=== PATIENT | female | born 1940 | race Asian ===

== ENCOUNTER 2018-12-03 15:02 | Emergency (ER) | payer MEDICARE, OTHER ==
[~2018-12-03] VITALS: Ht 157.5 cm; Wt 53.1 kg
--- NOTE | 2018-12-03 15:15 | NUR ---
PT BIBRA C/O HEADTRAUMA (+) HEMATOMA AT L FOREHEAD, PT IS AAOX3, NOT IN RESPIRATORY DISTRESS, V/S STABLE, KEPT RESTED AND COMFORTABLE.
[2018-12-03] MEDS ORDERED: MAGN400O6 PO (15:31)
[2018-12-03] MEDS ORDERED: MAG30ORA PO (15:31)
[2018-12-03] MEDS ORDERED: MULT-447 PO (15:31)
[2018-12-03] MEDS ORDERED: PSYL3.4P6 PO (15:31)
[2018-12-03] MEDS ORDERED: SENN-168 PO (15:31)
[2018-12-03] MEDS ORDERED: AMLO2.5T2 PO (15:31)
[2018-12-03] MEDS ORDERED: ACET-868 PO (15:31)
[2018-12-03] MEDS ORDERED: OXCA300T15 PO (15:31)
[2018-12-03] MEDS ORDERED: TRAZ-182 PO (15:31)
[2018-12-03] MEDS ORDERED: NA P133E RC (15:31)
[2018-12-03] MEDS ORDERED: BISA10SU8 RC (15:31)
[2018-12-03] MEDS ORDERED: CLON0.5T12 PO (15:31)
[2018-12-03] MEDS ORDERED: ZOLP5TAB8 PO (15:32)
[2018-12-03] MEDS ORDERED: CYAN100T3 PO (15:32)
--- NOTE | 2018-12-03 15:46 | NUR ---
PT IS WHEELED TO CT SCAN VIA [facility].
--- NOTE | 2018-12-03 17:30 | NUR ---
[facility] 1929 TRIP#[id number]
--- NOTE | 2018-12-03 19:18 | NUR ---
ASSUMED CARE OF PT. PT APPEARS UPSET THAT SHE HAS NOT GONE HOME YET. PT WAS TOLD THAT THE AMBULANCE IS COMING AT 1930. PT IS TRYING TO BE PT AND IS SITTING AT THE BEDSIDE.
--- NOTE | 2018-12-03 19:25 | NUR ---
CALLED [facility] AND WAS INFORMED [facility] WILL BE HERE IN 20 MINUTES AND ARE DELAYED
--- NOTE | 2018-12-03 19:32 | NUR ---
PT TRIED TO LEAVE BEFORE THE AMBULANCE ARRIVED. PT WAS SENT BACK TO ER BED #1. STAFF IS SITTING OUTSIDE THE ROOM UNTIL TRANSPORT AMBULANCE ARRIVED.
--- NOTE | 2018-12-03 19:53 | NUR ---
CALLING SIMA RE: PT HAND ALTERATIONS TAILOR.
--- NOTE | 2018-12-03 19:55 | NUR ---
SPOKE TO LISA ETA 15MINS.
--- NOTE | 2018-12-03 20:21 | NUR ---
AMBULANCE ARRIVED. Patient discharged to home in stable condition. Written and verbal after care instructions given. Patient verbalizes understanding of instruction. EMT HAS A COPY OF ALL PAPERWORK AND IMAGING. PT LEFT VIA AMBULANCE. VSS.
[2018-12-03 20:23] VITALS: BP 138/80
== END 2018-12-03 20:24 | disposition home or self-care (01) ==
LOC: ER 15:03
DX: S00.83XA Contusion of other part of head, initial encounter (principal); I10 Essential (primary) hypertension; F20.9 Schizophrenia, unspecified; F32.9 Major depressive disorder, single episode, unspecified; F41.9 Anxiety disorder, unspecified; Z88.0 Allergy status to penicillin; Z79.899 Other long term (current) drug therapy; W19.XXXA Unspecified fall, initial encounter; Y93.89 Activity, other specified; Y92.89 Other specified places as the place of occurrence of the external cause; Y99.8 Other external cause status
CPT/HCPCS: 70450-TC

== ENCOUNTER 2019-04-09 04:58 | Emergency (ER) | payer MEDICARE, OTHER ==
[~2019-04-09] VITALS: Ht 152.4 cm; Wt 49.9 kg
[~2019-04-09 04:58] MED LIST: ACET-868 PO; AMLO2.5T2 PO; BISA10SU8 RC; CLON0.5T12 PO; CYAN100T3 PO; MAG30ORA PO; MAGN400O6 PO; MULT-447 PO; NA P133E RC; OXCA300T15 PO; PSYL3.4P6 PO; SENN-168 PO; TRAZ-182 PO; ZOLP5TAB8 PO
[2019-04-09 05:30] VITALS: BP 142/84
--- NOTE | 2019-04-09 05:30 | NUR ---
Pt BIBRA FROM [facility] FOR INCREASED AGITATION AND CONFUSION FOR THE PAST DAY. Pt IS SYRIAC SPEAKING, UNDERSTANDS SOME YORUBA. CAN STATE NAME, & AGE. SAFETY MEASURES IN PLACE. WAITING FOR PSYCH EVAL. WILL CONTINUE TO MONITOR Pt's CONDITION AND SAFETY.
[2019-04-09 05:54] LABS: BASOPHILS % (AUTO) 0.7 % (0.0-2.0); EOSINOPHILS % (AUTO) 1.2 % (0.0-6.0); HEMATOCRIT 42 % (33-45); HEMOGLOBIN 14.3 g/dL (11.5-14.8); LYMPHOCYTES # (AUTO) 1.3 /CMM (0.8-4.8); LYMPHOCYTES % (AUTO) 22.2 % (20.0-44.0); MEAN CORPUSCULAR HGB CONC 34 g/dl (31.0-36.0); MEAN CORPUSCULAR VOLUME 92 fL (82-100); MONOCYTES # (AUTO) 0.4 /CMM (0.1-1.30); MONOCYTES % (AUTO) 7.6 % (2.0-12.0); NEUTROPHILS # (AUTO) 3.9 /CMM (1.8-8.9); NEUTROPHILS % (AUTO) 68.3 % (43.0-81.0); PLATELET COUNT (AUTO) 237 /CMM (150-450); WHITE BLOOD COUNT (AUTO) 5.8 K/uL (4.3-11.0)
--- NOTE | 2019-04-09 06:00 | NUR ---
URINE CULTURE COLLECTED. CLEAN CATCH.
[2019-04-09 06:11] LABS: ALANINE AMINOTRANSFERASE 24 U/L (12-78); ALBUMIN 3.9 g/dL (3.4-5.0); ALCOHOL, BLOOD < 3 mg/dL (0-0); ALKALINE PHOSPHATASE 53 U/L (46-116); ASPARTATE AMINOTRANSFERASE 13 U/L (15-37); BILIRUBIN,DIRECT 0.1 mg/dL (0.0-0.2); BILIRUBIN,TOTAL 0.4 mg/dL (0.2-1.0); CALCIUM, SERUM 8.7 mg/dL (8.5-10.1); CARBON DIOXIDE 28 mmol/L (21-32); CHLORIDE 105 mmol/L (98-107); CREATININE 0.7 mg/dL (0.6-1.3); GLUCOSE 107 mg/dL (74-106); POTASSIUM 3.8 mmol/L (3.5-5.1); SODIUM SERUM 140 mmol/L (136-145); TOTAL PROTEIN, SERUM 7.5 g/dL (6.4-8.2); UREA NITROGEN, BLOOD 18 mg/dL (7-18)
[2019-04-09 06:12] LABS: ACETAMINOPHEN 0 ug/ml (10-30); SALICYLATE 1.5 mg/dL (2.8-20.0)
[2019-04-09 06:14] LABS: APPEARANCE,URINE CLEAR (CLEAR); BILIRUBIN,URINE NEGATIVE (NEGATIVE); BLOOD, URINE NEGATIVE Ery/uL (NEGATIVE); COLOR,URINE YELLOW (YELLOW); KETONES,URINE NEGATIVE (NEGATIVE); LEUKOCYTE ESTERASE ,URINE NEGATIVE (NEGATIVE); NITRITE, URINE NEGATIVE (NEGATIVE); PH,URINE 6.5 (5.0-8.0); PROTEIN,URINE NEGATIVE (NEGATIVE); UGLUCOSE NEGATIVE (NEGATIVE); UROBILINOGEN,URINE 0.2 EU/dL (0.2)
--- NOTE | 2019-04-09 06:45 | NUR ---
WAITING FOR CRISIS TEAM CONSULT.
--- NOTE | 2019-04-09 07:30 | NUR ---
ENDORSED TO FUNMILAYO PÉREZ FOR Pt's SHAILESH.
--- NOTE | 2019-04-09 07:40 | NUR ---
patient in bed, sleeping in no apparent distress noted. will continue to monitor accordingly.
--- NOTE | 2019-04-09 08:20 | NUR ---
went to the PT room for vital signs check, patient not in the room and bathroom. Looked around hospital visinity and informed security to check around the hospital and no signs of patient.
--- NOTE | 2019-04-09 08:30 | NUR ---
called [employer] to report a missing person and unable to get a hold, will call back again later.
--- NOTE | 2019-04-09 08:40 | NUR ---
called security to check the camera to check which way patient went, and clothes color.
--- NOTE | 2019-04-09 09:00 | NUR ---
called security for update and per artaf they are still checking the camera.
--- NOTE | 2019-04-09 10:31 | NUR ---
CALLED [employer] RESERVATION AGENT [phone] INFORMED OF PT LEAVING.
--- NOTE | 2019-04-09 11:35 | NUR ---
officer jeromy GUZMAN came and given discription of the patient and informations. Per officer they will get back to us.
--- NOTE | 2019-04-09 13:02 | NUR ---
received a call from [facility] that patient walked back to the facility, informed to send the patient back for evaluation. made aware.
--- NOTE | 2019-04-09 13:04 | NUR ---
patient back to the facility ([facility]), eloped. Per SNF nurse she walked back to the facility. made aware.
[2019-04-09] MEDS ORDERED: SENN-18 PO (17:58)
[2019-04-09] MEDS ORDERED: OLAN10TA3 PO (17:58)
[2019-04-09] MEDS ORDERED: PRAV20TA PO (17:58)
[2019-04-09] MEDS ORDERED: METO-357 PO (17:58)
[2019-04-09] MEDS ORDERED: PSYL3.4P6 PO (17:58)
[2019-04-09] MEDS ORDERED: CHOL200026 PO (17:58)
[2019-04-09] MEDS ORDERED: CYAN10009 PO (17:58)
[2019-04-09] MEDS ORDERED: OLAN7.5T3 PO (17:58)
[2019-04-09] MEDS ORDERED: TYL2T PO (18:03)
== END 2019-04-09 13:04 | disposition left against medical advice (07) ==
LOC: ER 05:00
DX: R41.82 Altered mental status, unspecified (principal); R45.1 Restlessness and agitation; I10 Essential (primary) hypertension; M62.81 Muscle weakness (generalized); F20.9 Schizophrenia, unspecified; F41.9 Anxiety disorder, unspecified; F31.9 Bipolar disorder, unspecified; Z88.0 Allergy status to penicillin
CPT/HCPCS: 36415; 70450; 80048; 80076; 80305; 80307; 81001; 85025; 99284; G0480; 81000-TC

== ENCOUNTER 2019-04-09 17:13 | Inpatient (IN) | payer MEDICARE, OTHER ==
[~2019-04-09] VITALS: Ht 157.5 cm; Wt 49.4 kg
--- NOTE | 2019-04-09 17:15 | NUR ---
HUBERT FROM [facility] FOR AGITATION. TO ER BED 9, PROVIDED W WARM BLANKET, DR REHMAN AT BEDSIDE
--- NOTE | 2019-04-09 17:32 | NUR ---
CALLED PRIMING MACHINE OPERATOR ROSHAN ANDERSON ~1 HR
[2019-04-09] MEDS ORDERED: OLANZAPINE 10 MG VIAL IM ONE ×2 (17:53→18:00)
[2019-04-09] MEDS ORDERED: CYAN10009 PO (17:58)
[2019-04-09] MEDS ORDERED: PSYL3.4P6 PO (17:58)
[2019-04-09] MEDS ORDERED: OLAN10TA3 PO (17:58)
[2019-04-09] MEDS ORDERED: OLAN7.5T3 PO (17:58)
[2019-04-09] MEDS ORDERED: SENN-18 PO (17:58)
[2019-04-09] MEDS ORDERED: METO-357 PO (17:58)
[2019-04-09] MEDS ORDERED: PRAV20TA PO (17:58)
[2019-04-09] MEDS ORDERED: CHOL200026 PO (17:58)
[2019-04-09] MEDS ORDERED: TYL2T PO (18:03)
--- NOTE | 2019-04-09 18:20 | NUR ---
REPORT GIVEN TO MS HORNER OF F[facility]-PSYCH
[2019-04-09 18:52] VITALS: BP 132/81
--- NOTE | 2019-04-09 18:53 | NUR ---
PT. ARRIVED IN THE UNIT VIA A GURNEY AND WHEELED BY ER STAFF. ADMITTED ON [address] STOCK MADE AWARE OF THE ADMISSION AND WITH ORDERS. V/S TAKEN AND CONTRABAND DONE AND WILL ENDORSE TO THE NEXT SHIFT FOR THE COMPLETION OF THE ADMISSION.
[2019-04-09] MEDS ORDERED: QUETIAPINE FUMARATE 25 MG TABLET PO PRN (19:00)
[2019-04-09] MEDS ORDERED: MAGNESIUM HYDROXIDE 30 ML UDC PO PRN (19:00)
[2019-04-09] MEDS ORDERED: MAG HYDROX/AL HYDROX/SIMETH 30 ML UDC PO PRN (19:00)
[2019-04-09] MEDS ORDERED: ACETAMINOPHEN 325 MG TABLET PO PRN (19:00)
[2019-04-09 20:00] VITALS: BP 132/79
--- NOTE | 2019-04-09 20:00 | NUR ---
ADMISSION NOTES: ADMITTED THIS 79 Y/O FEMALE PATIENT ADMIT FROM [facility] , PT IS ON 5150 HOLD FOR DTS, DTO,GRAVELY DISABLE DANGER TO OTHERS , PER HOLD PT. AGGERSSIVE, AGITATED, WANDERED OUT OF HER CARE FACILITY , UPON FACE TO FACE ASSESSMENT PATIENT IS A&O X1 ,2 MANIC BX, UNCOOPERTIVE,AGGRESSIVE, DISORGINZE, CONFUSED EASILY GETS AGITATED, PT. IS POOR HISTORIAN, POOR INSIGHT ,POOR JUDGEMENT , POOR HYGINE , PT. REFUSED TO TAKE SHOWER AT THIS TIME , AND PT. REFUSED TO SIGN ADMISSION PAPERS ,V/S MD AMADOR AWARE AND NOTIFIED OF THE ADMISSION, PT. REFUSED SKIN FULL BODY ASSESSMENT , ENCOURAGED FOR SKIN ASSESSMENT/ PER PT. MY SKIN IS FINE ,EXPLINED RISKS AND BENEFITS STILL REFUSED, ENCOURAGED PT. VERBALIZED ANY FEELING CONCERN TO STAFF, ORIENT TO UNIT POLICY, WILL CONTINUE TO MONITOR FOR Q15 SAFETY AND BEHAVIOR.
[2019-04-09] MEDS ORDERED: BISACODYL SUPP (10 MG) 10 MG/SUPP.RECT SUPP.RECT RC PRN (22:30)
[2019-04-09] MEDS ORDERED: NA PHOS,M-B/NA PHOS,DI-BA 1 EA ENEMA RC PRN (22:30)
[2019-04-10 07:17] LABS: ALANINE AMINOTRANSFERASE 27 U/L (12-78); ALBUMIN 3.4 g/dL (3.4-5.0); ALKALINE PHOSPHATASE 49 U/L (46-116); ASPARTATE AMINOTRANSFERASE 27 U/L (15-37); BILIRUBIN,TOTAL 0.6 mg/dL (0.2-1.0); CALCIUM, SERUM 8.3 mg/dL (8.5-10.1); CARBON DIOXIDE 27 mmol/L (21-32); CHLORIDE 106 mmol/L (98-107); CREATININE 0.6 mg/dL (0.6-1.3); GLUCOSE 101 mg/dL (74-106); POTASSIUM 3.5 mmol/L (3.5-5.1); SODIUM SERUM 142 mmol/L (136-145); TOTAL PROTEIN, SERUM 6.6 g/dL (6.4-8.2); UREA NITROGEN, BLOOD 16 mg/dL (7-18)
[2019-04-10 07:48] LABS: CHOLESTEROL 181 mg/dL (<200); HDL CHOLESTEROL 58 mg/dL (40-60); LDL 113 mg/dL (0-99); TRIGLYCERIDES 63 mg/dL (30-150)
[2019-04-10 08:00] VITALS: BP 100/58
[2019-04-10] MEDS: OXCARBAZEPINE 150 MG TABLET PO SCH ×2 (08:50→13:03)
[2019-04-10] MEDS: METOPROLOL SUCCINATE 50 MG TAB.SR.24H PO SCH (08:50)
[2019-04-10] MEDS: CHOLECALCIFEROL 1,000 UNIT TABLET (VIT D3) PO SCH (08:50)
[2019-04-10] MEDS: CYANOCOBALAMIN 500 MCG TABLET PO SCH (08:50)
[2019-04-10 16:00] VITALS: BP 134/88
[2019-04-10] MEDS: ATORVASTATIN 10 MG TABLET PO SCH (21:28)
[2019-04-10] MEDS: DIVALPROEX SODIUM 125 MG TABLET.DR PO SCH (21:29)
[2019-04-10] MEDS: SENNOSIDES 8.6 MG TABLET PO SCH (21:29)
[2019-04-10] MEDS: risperiDONE 1 MG TABLET PO SCH (21:29)
[2019-04-10 21:54] VITALS: BP 125/78
[2019-04-10] MEDS ORDERED: PRAVASTATIN SODIUM 20 MG TABLET PO SCH (22:00)
[2019-04-11 09:31] VITALS: BP 123/77
[2019-04-11] MEDS: CHOLECALCIFEROL 1,000 UNIT TABLET (VIT D3) PO SCH (09:37)
[2019-04-11] MEDS: DIVALPROEX SODIUM 125 MG TABLET.DR PO SCH ×3 (09:38→20:12)
[2019-04-11] MEDS: CYANOCOBALAMIN 500 MCG TABLET PO SCH (09:38)
[2019-04-11] MEDS: METOPROLOL SUCCINATE 50 MG TAB.SR.24H PO SCH (09:38)
[2019-04-11] MEDS: risperiDONE 1 MG TABLET PO SCH ×2 (09:39→20:12)
[2019-04-11 16:00] VITALS: BP 108/69
[2019-04-11 20:57] VITALS: BP 149/81
[2019-04-11] MEDS: SENNOSIDES 8.6 MG TABLET PO SCH (21:06)
[2019-04-11] MEDS: ATORVASTATIN 10 MG TABLET PO SCH (21:06)
--- NOTE | 2019-04-11 21:07 | NUR ---
RN NOTE: WHEN INFORMED PT THAT SHE HAS SCHEDULED SENOKOT FOR TONIGHT, SHE REFUSED. SHE SAID SHE IS NOT CONSTIPATED AND HAS BEEN HAVING BM. EXPLAINED TO HER WHAT IT IS BUT SHE KEEPS SAYING "NO. I DON'T NEED IT."
[2019-04-12 08:00] VITALS: BP 122/79
[2019-04-12] MEDS: DIVALPROEX SODIUM 125 MG TABLET.DR PO SCH ×3 (08:22→21:30)
[2019-04-12] MEDS: CYANOCOBALAMIN 500 MCG TABLET PO SCH (08:22)
[2019-04-12] MEDS: CHOLECALCIFEROL 1,000 UNIT TABLET (VIT D3) PO SCH (08:22)
[2019-04-12] MEDS: risperiDONE 1 MG TABLET PO SCH ×2 (08:22→21:30)
[2019-04-12] MEDS: METOPROLOL SUCCINATE 50 MG TAB.SR.24H PO SCH (08:22)
--- NOTE | 2019-04-12 08:37 | NUR ---
Pt. was present but did not engage and left the session few minutes after it started.
--- NOTE | 2019-04-12 12:00 | NUR ---
Initial Discharge Plan: Pt currently resides at [facility] located at [address] [place] [id number]; ([phone]). Per pt, she would like to return "to the place I came from." LONI will work with the MD and the pt regarding appropriate discharge planning. SW will form a safe and proper discharge plan.
--- NOTE | 2019-04-12 12:01 | NUR ---
LONI called the pts daughter, Criss ([phone]), and discussed the initial discharge plan with her. It was discussed that the pt will return to [facility] and the LONI went over the medications with her as well. Addendum: 04/15/19 at 1041 by JEFF IVEY LONI also went over the pts treatment plan with the pt's daughter, Criss ([phone]).
--- NOTE | 2019-04-12 12:01 | NUR ---
LONI called Radha ([phone]) at [facility] and confirmed that the pt can return to their facility.
[2019-04-12 16:00] VITALS: BP 148/90
[2019-04-12 20:00] VITALS: BP 141/81
[2019-04-12] MEDS: ATORVASTATIN 10 MG TABLET PO SCH (21:31)
[2019-04-12] MEDS: SENNOSIDES 8.6 MG TABLET PO SCH (21:32)
--- NOTE | 2019-04-12 21:33 | NUR ---
RN NOTE: PATIENT REFUSED SCHEDULED SENOKOT FOR TONIGHT. SHE SAID SHE IS NOT CONSTIPATED. EXPLAINED TO HER WHAT IT IS BUT SHE KEEPS SAYING "NO. I DON'T NEED IT."
[2019-04-13 08:00] VITALS: BP 122/62
[2019-04-13] MEDS: DIVALPROEX SODIUM 125 MG TABLET.DR PO SCH ×3 (08:46→21:19)
[2019-04-13] MEDS: CHOLECALCIFEROL 1,000 UNIT TABLET (VIT D3) PO SCH (08:46)
[2019-04-13] MEDS: METOPROLOL SUCCINATE 50 MG TAB.SR.24H PO SCH (08:47)
[2019-04-13] MEDS: CYANOCOBALAMIN 500 MCG TABLET PO SCH (08:47)
[2019-04-13] MEDS: risperiDONE 1 MG TABLET PO SCH ×2 (08:50→21:19)
--- NOTE | 2019-04-13 14:10 | NUR ---
Group Note: Pt stated that she did not want to participate in group when the SW encouraged her. She was observed to be laying down in her bed with her eyes closed.
[2019-04-13 16:00] VITALS: BP 134/81
[2019-04-13 20:00] VITALS: BP 134/78
[2019-04-13 20:31] VITALS: BP 134/78
[2019-04-13] MEDS: ATORVASTATIN 10 MG TABLET PO SCH (21:19)
[2019-04-13] MEDS: SENNOSIDES 8.6 MG TABLET PO SCH (21:19)
[2019-04-13] MEDS: ZOLPIDEM TARTRATE 5 MG TABLET PO PRN (22:55)
[2019-04-14 08:27] VITALS: BP 104/61
[2019-04-14] MEDS: DIVALPROEX SODIUM 125 MG TABLET.DR PO SCH ×3 (08:48→21:11)
[2019-04-14] MEDS: CYANOCOBALAMIN 500 MCG TABLET PO SCH (08:49)
[2019-04-14] MEDS: risperiDONE 1 MG TABLET PO SCH ×2 (08:49→21:11)
[2019-04-14] MEDS: CHOLECALCIFEROL 1,000 UNIT TABLET (VIT D3) PO SCH (08:49)
[2019-04-14] MEDS: METOPROLOL SUCCINATE 50 MG TAB.SR.24H PO SCH (09:00)
--- NOTE | 2019-04-14 12:41 | NUR ---
Group Note: Pt was asleep when the SW went in the room to encourage the pt to participate in group therapy. SW asked the pt and she stated that she wanted to keep laying down in her bed.
[2019-04-14 16:28] VITALS: BP 110/72
[2019-04-14 20:15] VITALS: BP 132/81
[2019-04-14] MEDS: ATORVASTATIN 10 MG TABLET PO SCH (21:11)
[2019-04-14] MEDS: SENNOSIDES 8.6 MG TABLET PO SCH (21:11)
[2019-04-15 08:00] VITALS: BP 128/73
[2019-04-15] MEDS: DIVALPROEX SODIUM 125 MG TABLET.DR PO SCH ×2 (08:42→12:10)
[2019-04-15] MEDS: CHOLECALCIFEROL 1,000 UNIT TABLET (VIT D3) PO SCH (08:42)
[2019-04-15] MEDS: CYANOCOBALAMIN 500 MCG TABLET PO SCH (08:42)
[2019-04-15] MEDS: METOPROLOL SUCCINATE 50 MG TAB.SR.24H PO SCH (08:43)
[2019-04-15] MEDS: risperiDONE 1 MG TABLET PO SCH ×2 (09:12→20:53)
--- NOTE | 2019-04-15 11:05 | NUR ---
Supportive Counseling: SW informed the pt that she does not have a discharge date at this time because her psychiatrist, Dr. Dougherty, is currently adjusting her medications. Pt expressed her dissatisfaction with her hospital stay to the SW and the SW stated that she would attempt to address her needs as much as possible. SW assured her that she would be returning to her long-term facility in a matter of time.
[2019-04-15 11:13] LABS: VALPROIC ACID 9 ug/mL (50-100)
[2019-04-15 12:26] LABS: ALANINE AMINOTRANSFERASE 20 U/L (12-78); ASPARTATE AMINOTRANSFERASE 19 U/L (15-37)
--- NOTE | 2019-04-15 14:23 | NUR ---
Group Note: SW encouraged the pt to attend group therapy and she stated that she did not want to. She stated that she wanted to wait for her psychiatrist so that he could release her.
[2019-04-15 16:00] VITALS: BP 122/79
[2019-04-15 20:00] VITALS: BP 118/59
[2019-04-15] MEDS: DIVALPROEX SODIUM 500 MG TABLET.DR PO SCH (20:52)
[2019-04-15] MEDS: ATORVASTATIN 10 MG TABLET PO SCH (20:53)
[2019-04-15] MEDS: SENNOSIDES 8.6 MG TABLET PO SCH (20:53)
--- NOTE | 2019-04-16 03:19 | NUR ---
RN NOTES: ABLE TO SLEEP WELL IN THE NIGHT, GOOD COMPLIANCE WITH MEDICATION, COOPERATIVE,FALL,SAFETY AND ASPIRATION PRECAUTION OBSERVED,BED LOW AND LOCKED, ON CLOSE WATCH, NO AGGRESSIVE BEHAVIOR OR PERIODS OF AGITATION NOTED.
[2019-04-16 08:00] VITALS: BP 107/64
[2019-04-16] MEDS: METOPROLOL SUCCINATE 50 MG TAB.SR.24H PO SCH (09:00)
[2019-04-16] MEDS: CHOLECALCIFEROL 1,000 UNIT TABLET (VIT D3) PO SCH (09:34)
[2019-04-16] MEDS: CYANOCOBALAMIN 500 MCG TABLET PO SCH (09:34)
[2019-04-16] MEDS: risperiDONE 1 MG TABLET PO SCH ×2 (09:35→20:55)
[2019-04-16] MEDS: DIVALPROEX SODIUM 125 MG TABLET.DR PO SCH ×2 (09:35→13:34)
--- NOTE | 2019-04-16 14:43 | NUR ---
DR. VELÁSQUEZ PSYCHIATRIST IN TO SEE PT.
[2019-04-16 16:00] VITALS: BP 102/71
[2019-04-16 20:44] VITALS: BP 151/86
[2019-04-16] MEDS: DIVALPROEX SODIUM 500 MG TABLET.DR PO SCH (20:54)
[2019-04-16] MEDS: SENNOSIDES 8.6 MG TABLET PO SCH (21:54)
[2019-04-16] MEDS: ATORVASTATIN 10 MG TABLET PO SCH (21:55)
[2019-04-17 08:00] VITALS: BP 117/77
[2019-04-17] MEDS: CHOLECALCIFEROL 1,000 UNIT TABLET (VIT D3) PO SCH (08:36)
[2019-04-17] MEDS: risperiDONE 1 MG TABLET PO SCH ×2 (08:37→20:56)
[2019-04-17] MEDS: METOPROLOL SUCCINATE 50 MG TAB.SR.24H PO SCH (08:37)
[2019-04-17] MEDS: CYANOCOBALAMIN 500 MCG TABLET PO SCH (08:38)
[2019-04-17] MEDS: DIVALPROEX SODIUM 125 MG TABLET.DR PO SCH ×2 (09:17→12:21)
[2019-04-17 16:00] VITALS: BP 140/90
--- NOTE | 2019-04-17 18:08 | NUR ---
RN GPS NOTES PT AWAKE, ALERT AND ORIENTED, WALKS ALONG THE HALLWAY WITH STEADY GAIT, COMPLIANT WITH MEDS AND INTERVENTIONS, SEEN BY DR. PARRISH TODAY, NO BEHAVIOR PROBLEM NOTED.
[2019-04-17 20:17] VITALS: BP 143/95
[2019-04-17] MEDS: DIVALPROEX SODIUM 500 MG TABLET.DR PO SCH (20:56)
[2019-04-17] MEDS: ATORVASTATIN 10 MG TABLET PO SCH (21:10)
[2019-04-17] MEDS: SENNOSIDES 8.6 MG TABLET PO SCH (21:10)
[2019-04-17] MEDS: ZOLPIDEM TARTRATE 5 MG TABLET PO PRN (21:25)
--- NOTE | 2019-04-17 22:00 | NUR ---
RN NOTE: PATIENT REFUSED SCHEDULED SENOKOT FOR TONIGHT. DESPITE OF EDUCATION ON RISKS AND BENEFITS. PT STATED "NO. I DON'T NEED IT."
[2019-04-18 08:00] VITALS: BP 124/75
[2019-04-18] MEDS: DIVALPROEX SODIUM 125 MG TABLET.DR PO SCH ×2 (08:44→12:26)
[2019-04-18] MEDS: CHOLECALCIFEROL 1,000 UNIT TABLET (VIT D3) PO SCH (08:44)
[2019-04-18] MEDS: risperiDONE 1 MG TABLET PO SCH ×2 (08:45→21:25)
[2019-04-18] MEDS: CYANOCOBALAMIN 500 MCG TABLET PO SCH (08:45)
[2019-04-18] MEDS: METOPROLOL SUCCINATE 50 MG TAB.SR.24H PO SCH (08:45)
[2019-04-18 16:00] VITALS: BP 120/62
--- NOTE | 2019-04-18 16:50 | NUR ---
GPS/RN-NOTES DR. STOCK IN THE UNIT WITH VERBAL ORDER TO CHANGE DEPAKOTE TABLET ORDERS TO LIQUID FORM WITH SAME DOSAGES AND FREQUENCIES. NOTED AND CARRIED OUT.
--- NOTE | 2019-04-18 19:50 | NUR ---
GPS RN NOTE: PATIENT RESTING IN BED, NO ACUTE DISTRESS NOTED. BREATHING EVEN AND UNLABORED, NO SOB NOTED. PATIENT CALM AND COOPERATIVE AT THIS TIME. WILL CONTINUE TO MONITOR.
--- NOTE | 2019-04-18 19:55 | NUR ---
GPS RN NOTE: PATIENT RESTING IN BED, NO ACUTE DISTRESS NOTED. BREATHING EVEN AND UNLABORED, NO SOB NOTED. WILL CONTINUE TO MONITOR.
[2019-04-18 20:25] VITALS: BP 149/84
[2019-04-18] MEDS: ATORVASTATIN 10 MG TABLET PO SCH (21:25)
[2019-04-18] MEDS: VALPROIC ACID 250 MG/5 ML UDC PO SCH (21:25)
[2019-04-18] MEDS: SENNOSIDES 8.6 MG TABLET PO SCH (21:25)
[2019-04-19 08:00] VITALS: BP 115/68
[2019-04-19] MEDS: METOPROLOL SUCCINATE 50 MG TAB.SR.24H PO SCH (08:42)
[2019-04-19] MEDS: risperiDONE 1 MG TABLET PO SCH ×2 (08:42→20:56)
[2019-04-19] MEDS: CHOLECALCIFEROL 1,000 UNIT TABLET (VIT D3) PO SCH (08:42)
[2019-04-19] MEDS: VALPROIC ACID 250 MG/5 ML UDC PO SCH ×3 (08:42→20:56)
[2019-04-19] MEDS: CYANOCOBALAMIN 500 MCG TABLET PO SCH (08:43)
--- NOTE | 2019-04-19 14:25 | NUR ---
Group Note: Pt stated that she did not want to participate in group when the SW encouraged her. Pt is confused and disoriented.
[2019-04-19 16:28] VITALS: BP 127/86
[2019-04-19 19:57] VITALS: BP 130/78
[2019-04-19] MEDS: ATORVASTATIN 10 MG TABLET PO SCH (21:07)
[2019-04-19] MEDS: SENNOSIDES 8.6 MG TABLET PO SCH (21:08)
--- NOTE | 2019-04-19 21:25 | NUR ---
RN NOTE: PATIENT REFUSED SCHEDULED SENOKOT FOR TONIGHT. DESPITE OF EDUCATION ON RISKS AND BENEFITS. PT STATED "NO. I DON'T NEED IT. I'M HAVING DIARRHEA WHEN TAKING IT."
[2019-04-19] MEDS: ZOLPIDEM TARTRATE 5 MG TABLET PO PRN (21:33)
[2019-04-20 08:00] VITALS: BP 125/78
--- NOTE | 2019-04-20 08:33 | NUR ---
SW called the pts daughter, Criss ([phone]), and informed her that the pts psychiatrist, Dr. Dougherty, stated that the pt has been cheeking her medications and therefore she will need to be in the hospital for a few more days to become more stable. Pts daughter expressed concern that the pt appears to be more confused and that she appears to be getting worse. She asked if the medications would help the pt improve and the SW stated that was the goal.
[2019-04-20] MEDS: VALPROIC ACID 250 MG/5 ML UDC PO SCH ×3 (09:00→20:34)
[2019-04-20] MEDS: CHOLECALCIFEROL 1,000 UNIT TABLET (VIT D3) PO SCH (09:39)
[2019-04-20] MEDS: CYANOCOBALAMIN 500 MCG TABLET PO SCH (09:39)
[2019-04-20] MEDS: METOPROLOL SUCCINATE 50 MG TAB.SR.24H PO SCH (09:40)
[2019-04-20] MEDS: risperiDONE 1 MG TABLET PO SCH ×2 (09:41→20:27)
--- NOTE | 2019-04-20 10:02 | NUR ---
GPS/RN-NOTES PATIENT REFUSED DEPAKENE SYP 250MG P.O DESPITE EXPLANATION RISK AND BENEFITS. PATIENT STATED" NO,I DON'T WANT TO TAKE THAT MEDICINE". OFFERED X3.
--- NOTE | 2019-04-20 14:02 | NUR ---
GPS/RN-NOTES PATIENT STILL REFUSED DEPAKENE SYP 250MG P.O DESPITE EXPLANATION RISK AND BENEFITS. OFFERED X3.
--- NOTE | 2019-04-20 15:53 | NUR ---
Group Note: Pt stated that she did not want to participate in group when the SW encouraged her. Pt is confused and disoriented.
[2019-04-20 16:00] VITALS: BP 121/79
[2019-04-20] MEDS: BENZTROPINE MESYLATE (1 MG) 1 MG TABLET PO SCH (17:22)
[2019-04-20 20:01] VITALS: BP 144/83
[2019-04-20] MEDS: SENNOSIDES 8.6 MG TABLET PO SCH (21:09)
[2019-04-20] MEDS: ATORVASTATIN 10 MG TABLET PO SCH (21:09)
[2019-04-20] MEDS: ZOLPIDEM TARTRATE 5 MG TABLET PO PRN (21:37)
--- NOTE | 2019-04-20 21:52 | NUR ---
RN NOTE: PATIENT REFUSED SCHEDULED DEPAKENE 500MG/10ML SYRUP AND SENOKOT FOR TONIGHT. DESPITE OF EXPLANATION ON RISKS AND BENEFITS. PT STATED "NO. I DON'T WANT IT". PATIENT STRONGLY REFUSED.
[2019-04-21 08:00] VITALS: BP 140/84
[2019-04-21] MEDS: CHOLECALCIFEROL 1,000 UNIT TABLET (VIT D3) PO SCH (08:28)
[2019-04-21] MEDS: BENZTROPINE MESYLATE (1 MG) 1 MG TABLET PO SCH ×2 (08:28→16:50)
[2019-04-21] MEDS: METOPROLOL SUCCINATE 50 MG TAB.SR.24H PO SCH (08:29)
[2019-04-21] MEDS: CYANOCOBALAMIN 500 MCG TABLET PO SCH (08:29)
[2019-04-21] MEDS: risperiDONE 1 MG TABLET PO SCH ×2 (08:29→21:13)
[2019-04-21] MEDS: VALPROIC ACID 250 MG/5 ML UDC PO SCH ×3 (08:32→21:13)
--- NOTE | 2019-04-21 15:15 | NUR ---
GROUP NOTE: SW prompted pt to participate in group, pt refused to participate stating she did not want to go.
[2019-04-21 16:23] VITALS: BP 107/64
[2019-04-21 20:00] VITALS: BP 114/73
[2019-04-21] MEDS: SENNOSIDES 8.6 MG TABLET PO SCH (21:13)
[2019-04-21] MEDS: ATORVASTATIN 10 MG TABLET PO SCH (22:08)
[2019-04-22 08:00] VITALS: BP 103/54
[2019-04-22] MEDS: METOPROLOL SUCCINATE 50 MG TAB.SR.24H PO SCH (09:00)
[2019-04-22] MEDS: VALPROIC ACID 250 MG/5 ML UDC PO SCH ×3 (09:14→21:22)
[2019-04-22] MEDS: CYANOCOBALAMIN 500 MCG TABLET PO SCH (09:28)
[2019-04-22] MEDS: BENZTROPINE MESYLATE (1 MG) 1 MG TABLET PO SCH ×2 (09:28→17:27)
[2019-04-22] MEDS: CHOLECALCIFEROL 1,000 UNIT TABLET (VIT D3) PO SCH (09:29)
[2019-04-22] MEDS: risperiDONE 1 MG TABLET PO SCH ×2 (09:29→21:22)
--- NOTE | 2019-04-22 14:42 | NUR ---
Group Note: Pt stated that she did not want to participate in group therapy on 04/22/19 at 1:30PM when the SW encouraged her. Pt is confused and disoriented.
--- NOTE | 2019-04-22 14:44 | NUR ---
LONI called the pts daughter, Criss ([phone]), and left her a voicemail stating that the SW does not have a discharge date for the pt at this point and that the SW will talk to the psychiatrist, Dr. Dougherty, and inform the daughter of an update on Thursday.
[2019-04-22 16:00] VITALS: BP 122/77
[2019-04-22 20:00] VITALS: BP 138/76
[2019-04-22] MEDS: SENNOSIDES 8.6 MG TABLET PO SCH (21:22)
[2019-04-22] MEDS: ATORVASTATIN 10 MG TABLET PO SCH (21:22)
[2019-04-22] MEDS: ZOLPIDEM TARTRATE 5 MG TABLET PO PRN (22:17)
[2019-04-23 08:00] VITALS: BP 135/71
--- NOTE | 2019-04-23 10:30 | NUR ---
initially this am reluctant to take meds,then with prodding consented to take all meds.
[2019-04-23] MEDS: CYANOCOBALAMIN 500 MCG TABLET PO SCH (10:32)
[2019-04-23] MEDS: VALPROIC ACID 250 MG/5 ML UDC PO SCH ×3 (10:32→21:32)
[2019-04-23] MEDS: CHOLECALCIFEROL 1,000 UNIT TABLET (VIT D3) PO SCH (10:33)
[2019-04-23] MEDS: BENZTROPINE MESYLATE (1 MG) 1 MG TABLET PO SCH ×2 (10:33→18:48)
[2019-04-23] MEDS: METOPROLOL SUCCINATE 50 MG TAB.SR.24H PO SCH (10:33)
[2019-04-23] MEDS: risperiDONE 1 MG TABLET PO SCH ×2 (10:33→21:33)
--- NOTE | 2019-04-23 14:42 | NUR ---
psychiatrist dr. munoz in to see pt.
[2019-04-23 16:00] VITALS: BP 128/86
[2019-04-23 19:44] VITALS: BP 118/71
[2019-04-23] MEDS: ATORVASTATIN 10 MG TABLET PO SCH (21:33)
[2019-04-23] MEDS: SENNOSIDES 8.6 MG TABLET PO SCH (21:34)
[2019-04-24 08:00] VITALS: BP 122/71
[2019-04-24] MEDS: METOPROLOL SUCCINATE 50 MG TAB.SR.24H PO SCH (09:00)
[2019-04-24] MEDS: CHOLECALCIFEROL 1,000 UNIT TABLET (VIT D3) PO SCH (09:10)
[2019-04-24] MEDS: VALPROIC ACID 250 MG/5 ML UDC PO SCH ×3 (09:10→20:51)
[2019-04-24] MEDS: CYANOCOBALAMIN 500 MCG TABLET PO SCH (09:11)
[2019-04-24] MEDS: risperiDONE 1 MG TABLET PO SCH ×2 (09:11→20:52)
[2019-04-24] MEDS: BENZTROPINE MESYLATE (1 MG) 1 MG TABLET PO SCH ×2 (09:13→16:47)
[2019-04-24 13:00] VITALS: BP 99/59
[2019-04-24 16:00] VITALS: BP 99/59
[2019-04-24 20:00] VITALS: BP 124/72
[2019-04-24] MEDS: SENNOSIDES 8.6 MG TABLET PO SCH (21:13)
[2019-04-24] MEDS: ATORVASTATIN 10 MG TABLET PO SCH (21:13)
[2019-04-24] MEDS: ZOLPIDEM TARTRATE 5 MG TABLET PO PRN (22:23)
[2019-04-25 08:00] VITALS: BP 108/65
--- NOTE | 2019-04-25 09:55 | NUR ---
LONI called the pts daughter, Criss ([phone]), and informed her that the pt is going to be [facility]. Pts daughter accepted the placement.
--- NOTE | 2019-04-25 10:41 | NUR ---
GPS/RN-NOTES RECEIVED T.O DISCHARGE ORDER FROM DR. STOCK .D/C HOLD,CONTINUE ALL ROUTINE AND PRN MEDICATIONS. NOTED AND CARRIED OUT.
[2019-04-25] MEDS: VALPROIC ACID 250 MG/5 ML UDC PO SCH ×2 (10:42→12:58)
[2019-04-25 10:45] VITALS: BP 108/65
[2019-04-25] MEDS: risperiDONE 1 MG TABLET PO SCH (10:45)
[2019-04-25] MEDS: METOPROLOL SUCCINATE 50 MG TAB.SR.24H PO SCH (10:45)
[2019-04-25] MEDS: CHOLECALCIFEROL 1,000 UNIT TABLET (VIT D3) PO SCH (10:45)
--- NOTE | 2019-04-25 11:30 | NUR ---
GPS/RN-NOTES RECEIVED T.O DISCHARGE ORDER FROM DR. JONES COVERING FOR DR. PARRISH TODAY TO CONTINUE ALL ROUTINE MEDICATIONS AND D/C PRN MEDICATIONS. NOTED AND CARRIED OUT.
--- NOTE | 2019-04-25 11:47 | NUR ---
LONI faxed an inquiry to [facility] with attention to Radha to the fax number: [phone].
[2019-04-25] MEDS: CYANOCOBALAMIN 500 MCG TABLET PO SCH (12:55)
[2019-04-25] MEDS: BENZTROPINE MESYLATE (1 MG) 1 MG TABLET PO SCH (12:56)
--- NOTE | 2019-04-25 14:15 | NUR ---
FUNMILAYO notes pt picked up by ambulance @ 1350 , report given by portable grinding machine operator Essie Addendum: 04/25/19 at 1501 by SUZIE TOMLINSON RN pt left unit in stable condition Addendum: 04/25/19 at 1545 by SUZIE TOMLINSON RN pt with a calm and cooperative behavior at time of pickup.. Pt denied both suicidal and homicidal ideation as well as auditory and visual hallucinations
--- NOTE | 2019-04-25 15:03 | NUR ---
Discharge Note: Pt was discharged to [facility] (SNF) located at [address] [place] [address]; ([phone]). Pt was transported via [facility] at 2PM. Pts daughter, Criss ([phone]), was informed of the discharge. Upon discharge, the pt appeared to be in a euthymic mood and presented with a calm affect. Pt denied both suicidal and homicidal ideation as well as auditory and visual hallucinations. Pt will be under the care of her psychiatrist, Dr. Dougherty, [place] at [address] [place] [address]; and her sales support technician, Dr. Byrant, located at [address] [facility] [address] [address]; .
== END 2019-04-25 12:50 | DRG 885 ==
LOC: ER 17:14 → GPS 18:04
PROVIDERS: ADMIT Psychiatry & Neurology Psychiatry; ATTEND Internal Medicine
DX: F31.2 Bipolar disorder, current episode manic severe with psychotic features (principal); G93.40 Encephalopathy, unspecified; F29 Unspecified psychosis not due to a substance or known physiological condition; I10 Essential (primary) hypertension; Z79.899 Other long term (current) drug therapy; F41.9 Anxiety disorder, unspecified; Z91.81 History of falling; Z91.19 Patient's noncompliance with other medical treatment and regimen; Z91.14 Patient's other noncompliance with medication regimen; Z88.0 Allergy status to penicillin; I25.10 Atherosclerotic heart disease of native coronary artery without angina pectoris; M81.0 Age-related osteoporosis without current pathological fracture; K59.00 Constipation, unspecified; R73.03 Prediabetes; F03.90 Unspecified dementia, unspecified severity, without behavioral disturbance, psychotic disturbance, mood disturbance, and anxiety; E55.9 Vitamin D deficiency, unspecified
CPT/HCPCS: 36415; 80053-TC; 80061-TC; 80164-TC; 82140-TC; 84450-TC; 84460-TC; 87081-TC; J3490

== ENCOUNTER 2020-06-11 22:41 | Emergency (ER) | payer MEDICARE, OTHER ==
[~2020-06-11] VITALS: Ht 157.5 cm; Wt 62.6 kg
[~2020-06-11 22:41] MED LIST changes: -ACET-868 PO; -AMLO2.5T2 PO; +BISA10SU11 RC; -BISA10SU8 RC; +CHOL200026 PO; -CLON0.5T12 PO; +CLON0.5T4 PO; +CYAN-51 PO; -CYAN100T3 PO; -MAG30ORA PO; +METO-357 PO; -MULT-447 PO; +OLAN10TA3 PO; +OLAN7.5T3 PO; +PRAV20TA PO; -SENN-168 PO; +SENN-18 PO; +TYL2T PO
[2020-06-11 23:28] LABS: BASOPHILS % (AUTO) 0.7 % (0.0-2.0); EOSINOPHILS % (AUTO) 0.3 % (0.0-6.0); HEMATOCRIT 38 % (33-45); HEMOGLOBIN 12.6 g/dL (11.5-14.8); LYMPHOCYTES % (AUTO) 14.4 % (20.0-44.0); MEAN CORPUSCULAR HGB CONC 33 g/dl (31.0-36.0); MEAN CORPUSCULAR VOLUME 93 fL (82-100); MONOCYTES # (AUTO) 0.9 /CMM (0.1-1.30); NEUTROPHILS # (AUTO) 5.1 /CMM (1.8-8.9); NEUTROPHILS % (AUTO) 72.6 % (43.0-81.0); PLATELET COUNT (AUTO) 214 /CMM (150-450); RED BLOOD CELL COUNT(AUTO) 4.13 MIL/uL (4.0-5.2); WHITE BLOOD COUNT (AUTO) 7.1 K/uL (4.3-11.0)
[2020-06-11 23:39] LABS: CALCIUM, SERUM 8.3 mg/dL (8.5-10.1); CREATININE 0.7 mg/dL (0.6-1.3); POTASSIUM 3.6 mmol/L (3.5-5.1)
[2020-06-11 23:48] LABS: APPEARANCE,URINE Clear (CLEAR); BILIRUBIN,URINE Negative (NEGATIVE); BLOOD, URINE Trace-intact Ery/uL (NEGATIVE); COLOR,URINE Yellow (YELLOW); KETONES,URINE 15 (NEGATIVE); LEUKOCYTE ESTERASE ,URINE Negative (NEGATIVE); NITRITE, URINE Negative (NEGATIVE); PROTEIN,URINE 30 mg/dl (NEGATIVE); UGLUCOSE Negative (NEGATIVE); UROBILINOGEN,URINE 0.2 EU/dL (0.2)
[2020-06-11 23:53] LABS: ALBUMIN 3.5 g/dL (3.4-5.0); BILIRUBIN,DIRECT 0.1 mg/dL (0.0-0.2); BILIRUBIN,TOTAL 0.6 mg/dL (0.2-1.0)
[2020-06-12 00:04] LABS: BACTERIA,URINE None seen /HPF (None Seen); SQUAMOUS EPITHELIAL CELL,UR Few /HPF (None Seen); URIC ACID CRYSTALS,URINE Many /HPF (None Seen); WBC,URINE 0-2 /HPF (0-3)
[2020-06-12 00:05] LABS: MUCUS,URINE Many /LPF (None Seen)
--- NOTE | 2020-06-12 00:05 | NUR ---
PATIENT CAME TO ER BED 7 FROM NURSING FACILTY FOR ALTERED MENTAL STATUS. PER [facility] AMBULANCE REPORT, PATIENT IS NOT TALKING TO STAFF. PATIENT WILL NOT ANSWER QUESTIONS, BUT WILL STATE THAT SHE IS COLD AND WANTS A BLANKET. ALERT AND AWAKE. CONNECTED TO MONITOR. BREATHING EVENLY AND UNLABORED ON ROOM AIR.
--- NOTE | 2020-06-12 00:15 | NUR ---
PATIENT SPOKE IN ROMANIAN.
--- NOTE | 2020-06-12 01:45 | NUR ---
FACILITY UNWILLING TO ACCEPT PATIENT BACK TO [facility]. SPOKE WITH OLIVA (OBEY, UNWILLING TO PROVIDE LAST NAME, NOR TITLE WHEN ASKED). OLIVA STATES THAT SHE IS A CAREGIVER AT THE FACILITY.
--- NOTE | 2020-06-12 04:24 | NUR ---
PATIENT IS SLEEPING. EASILY AROUSABLE THROUGH TOUCH AND VERBAL STIMULI. CONNECTED TO MONITOR. BREATHING EVENLY AND UNLABORED ON ROOM AIR. SIDE RAILS UP FOR SAFETY. WILL CONTINUE TO MONITOR.
[2020-06-12 06:23] VITALS: BP 105/55
--- NOTE | 2020-06-12 07:24 | NUR ---
REPORT GIVEN TO ELISA MELLO FOR SHAILESH.
--- NOTE | 2020-06-12 08:02 | NUR ---
CALLED [facility] [phone] ETA 0901 PER AMANDA
--- NOTE | 2020-06-12 08:30 | NUR ---
shayan sheth called,spoke with Jenelle, to assist us in coordinating with [facility] who refused to accept patient last night.
--- NOTE | 2020-06-12 08:40 | NUR ---
called back from Jenelle, patient was accepted by Mic[facility] to go back to [facility]
--- NOTE | 2020-06-12 10:20 | NUR ---
IV removed. Catheter intact and site benign. Pressure and 4x4 applied to site. No bleeding noted.
== END 2020-06-12 10:24 ==
LOC: ER 22:43
DX: R41.82 Altered mental status, unspecified (principal); I10 Essential (primary) hypertension; M62.81 Muscle weakness (generalized); Z88.0 Allergy status to penicillin; Z79.899 Other long term (current) drug therapy
CPT/HCPCS: 36415; 70450-TC; 71045-TC; 80048-TC; 80076-TC; 81000-TC; 83605-TC; 84484-TC; 85025-TC; 85730-TC; 87040-TC; 87086-TC

== ENCOUNTER 2020-06-13 03:21 | Emergency (ER) | payer MEDICARE, OTHER ==
[~2020-06-13] VITALS: Ht 157.5 cm; Wt 62.6 kg
--- NOTE | 2020-06-13 03:25 | NUR ---
EMT AT BEDSIDE FOR WOUND CARE
--- NOTE | 2020-06-13 03:31 | NUR ---
PT WAS LASHAWN Coe FROM [facility] FOR EVALUATION OF RFA LACERATION AND MULTIPLE ABRASION ON THE FACE S/P FOUND PT ON THE FLOOR IN THE FACILITY. PT ALERT AND AWAKE , HOWEVER DOES NOT ANSWER ANY QUESTION. PT WAS TRANSFERRED TO BED 11 AND PLACED ON A MONITOR AND LONNY CLOSE SUPERVISION FOR SAFETY. WILL CONT TO MONITOR ,
--- NOTE | 2020-06-13 03:54 | NUR ---
BROUGHT TO CT
--- NOTE | 2020-06-13 03:59 | NUR ---
BACK FROM CT
--- NOTE | 2020-06-13 04:25 | NUR ---
EMT AT THE BED SIDE FOR LACERATION CARE. GOOD SKIN CARE ON RFA AND R CHEEK WAS PROVIDED. AREA WAS CLEANED AND DRIED . STERI-STRIPS APPLIED. RFA WAS COVERED W/ DD AND KERLIX.
--- NOTE | 2020-06-13 05:47 | NUR ---
spoke to toro at [facility] and informed her re, pt is medically clear and will be discharged back to the facility.
--- NOTE | 2020-06-13 05:54 | NUR ---
CALLED [facility] AND ARRANGED TRANSPORTATION BACK TO THE FACILITY. ETA: [phone]
--- NOTE | 2020-06-13 07:16 | NUR ---
REPORT GIVEN TO AMCHARLESTON. PT TRANSFERED BACK TO FACILITY.
[2020-06-13 07:17] VITALS: BP 111/69
== END 2020-06-13 07:18 | disposition home or self-care (01) ==
LOC: ER 03:22
DX: R51 Headache (principal); M79.631 Pain in right forearm; I10 Essential (primary) hypertension; R53.1 Weakness; Z88.0 Allergy status to penicillin; W18.39XA Other fall on same level, initial encounter; Y93.89 Activity, other specified; Y92.89 Other specified places as the place of occurrence of the external cause; Y99.8 Other external cause status; Z79.899 Other long term (current) drug therapy
CPT/HCPCS: 70450-TC; 73090-TC